=== PATIENT | male | born 1985 | race Caucasian/White ===

== ENCOUNTER 2016-08-26 15:52 | Emergency (ER) | payer SELFPAY ==
[~2016-08-26 15:52] MED LIST: ALPR0.5T PO; MULTTAB58 PO
== END 2016-08-26 16:08 | disposition left against medical advice (07) ==
LOC: C.EDB 15:52
DX: S61.219A Laceration without foreign body of unspecified finger without damage to nail, initial encounter (principal); X58.XXXA Exposure to other specified factors, initial encounter